=== PATIENT | female | born 1960 | race Caucasian/White ===

== ENCOUNTER 2017-07-25 11:22 | Day surgery (SDC) | payer OTHER ==
[~2017-07-25] VITALS: Ht 162.6 cm; Wt 63.0 kg
[2017-07-25 12:35] VITALS: Ht 162.6 cm; Wt 63.0 kg
[2017-07-25 13:18] VITALS: BP 126/74; PULSE 65; RESP 10
[2017-07-25] MEDS ORDERED: [UNRECOGNIZED DRUG - OTHER] (13:20)
--- NOTE | 2017-07-25 14:12 | OPPN ---
Date/Time of Note Date/Time of Note DATE: 07/25/17 TIME: 14:10 Operative Report Preoperative Diagnosis Abdominal pain Screening colonoscopy Postoperative Diagnosis Gastritis with erosions 3 small colon polyps were removed Internal hemorrhoids Operation/Procedure Performed Esophagogastroduodenoscopy and biopsy Colonoscopy and biopsy Surgeon see signature line household personal assistant None Anesthesia: moderate sedation Estimated blood loss: none Transfusion Required none Specimen Gastric mucosal biopsy Colon polyps Grafts/Implants none Complications none MOY KANG MD Jul 25, 2017 14:12
--- NOTE | 2017-07-25 14:12 | OPPN ---
Date/Time of Note Date/Time of Note DATE: 07/25/17 TIME: 14:10 Operative Report Preoperative Diagnosis Abdominal pain Screening colonoscopy Postoperative Diagnosis Gastritis with erosions 3 small colon polyps were removed Internal hemorrhoids Operation/Procedure Performed Esophagogastroduodenoscopy and biopsy Colonoscopy and biopsy Surgeon see signature line studio assistant None Anesthesia: moderate sedation Estimated blood loss: none Transfusion Required none Specimen Gastric mucosal biopsy Colon polyps Grafts/Implants none Complications none MOY KANG MD Jul 25, 2017 14:12
--- NOTE | 2017-07-25 14:12 | OPPN ---
Date/Time of Note Date/Time of Note DATE: 07/25/17 TIME: 14:10 Operative Report Preoperative Diagnosis Abdominal pain Screening colonoscopy Postoperative Diagnosis Gastritis with erosions 3 small colon polyps were removed Internal hemorrhoids Operation/Procedure Performed Esophagogastroduodenoscopy and biopsy Colonoscopy and biopsy Surgeon see signature line assistant child care teacher None Anesthesia: moderate sedation Estimated blood loss: none Transfusion Required none Specimen Gastric mucosal biopsy Colon polyps Grafts/Implants none Complications none MOY KANG MD Jul 25, 2017 14:12
[2017-07-25] MEDS ORDERED: FENTAnyl 50 MCG/ML VIAL ONE (14:16)
[2017-07-25] MEDS ORDERED: MIDAZOLAM 1 MG/ML 2 ML INJ ONE (14:16)
--- NOTE | 2017-07-26 03:36 | GILP ---
DATE OF PROCEDURE: NAME OF PROCEDURES: 1. Esophagogastroduodenoscopy and biopsy. 2. Colonoscopy and biopsy. SURGEON: Moy Guadarrama MD PREOPERATIVE DIAGNOSES: 1. Abdominal pain. 2. Screening colonoscopy. POSTOPERATIVE DIAGNOSES 1. Gastritis with erosions. 2. Gastric mucosal biopsies were taken for Helicobacter pylori test. 3. Colonoscopy all the way to the cecum. 4. Three small colon polyps were removed using the biopsy forceps. 5. Internal hemorrhoids. INDICATION FOR THE PROCEDURE: Ms. Joan Kerns is a 56-year-old female patient who had upper abdomin al pain, not responding to therapy. She also needed screening colonoscopy. The procedures and possible complications are well explained to the patient. She understood and con sented to the procedure. DESCRIPTION OF PROCEDURE: Under the influence of fentanyl and Versed, the gastroscope was carefully introduced into the esophagus and under direct vision, it was advanced to the stomach and through t he pylorus into the duodenal bulb and descending duodenum. FINDINGS: ESOPHAGUS: The mucosa was normal. STOMACH: Patient had gastritis with erosions. Gastric mucosal biopsies were taken for H. pylori te st. DUODENUM: Normal. The colonoscope was carefully introduced in the rectum and under direct vision, it was advanced all the way to the cecum. FINDINGS: The patient had 3 small colon polyps and they were removed using the biopsy forceps. She was noted to have internal hemorrhoids. She tolerated the procedures very well and there was no complication from the procedures. At the en d of the procedures, she was awake with stable vital signs and she was discharged home to the care o f her family. IMPRESSION: 1. Gastritis with erosions. 2. Gastric mucosal biopsies were taken for Helicobacter pylori test. 3. Colonoscopy all the way to the cecum. 4. Three small colon polyps were removed using the biopsy forceps. 5. Internal hemorrhoids. PLAN: 1. Omeprazole 40 mg p.o. q.a.m. 2. Await histopathology reports. Dictated By: MOY BLACKWELL/CHRISTINA Conf#: [id number] DID#: [id number]
== END 2017-07-25 17:36 | disposition home or self-care (01) ==
LOC: GIL 11:22
PROVIDERS: ATTEND Internal Medicine Gastroenterology
DX: Z12.11 Encounter for screening for malignant neoplasm of colon (principal); D12.6 Benign neoplasm of colon, unspecified; K64.8 Other hemorrhoids; K29.70 Gastritis, unspecified, without bleeding
CPT/HCPCS: 43239; 45380; 87081; 88305; J2250; J3010; Z7610